=== PATIENT | female | born 1985 | race Caucasian/White ===

== ENCOUNTER 2018-08-09 20:32 | Emergency (ER) | payer BC, OTHER ==
--- NOTE | 2018-08-09 23:06 | ED ---
Lower Extremity - HPI Summary HPI Summary: 32-year-old female presents with left foot pain for the past week. States she is on her feet a lot. She states she is pain over her second metatarsal MTP. She states she has no pain at rest and only when she walks on it or moves her toes. States pain does not radiate anywhere. No injury. No numbness or tingling. - History of Current Complaint Chief Complaint: EDExtremityLower Stated Complaint: LT FT INJURY Time Seen by Provider: 08/09/18 21:23 Hx Last Menstrual Period: 03/13/15 Pain Intensity: 6 - Allergies/Home Medications Allergies/Adverse Reactions: Allergies Allergy/AdvReac Type Severity Reaction Status Date / Time celecoxib [From Celebrex] Allergy Anxiety Verified 08/09/18 21:53 diphenhydramine Allergy Anxiety Verified 08/09/18 21:53 [From Benadryl] NSAIDS (Non-Steroidal Allergy Tachycardia Verified 08/09/18 21:53 Anti-Inflamma pseudoephedrine Allergy Anxiety Verified 08/09/18 21:53 PMH/Surg Hx/FS Hx/Imm Hx Endocrine/Hematology History: Denies: Hx Anticoagulant Therapy - Surgical History Surgery Procedure, Year, and Place: LIPOMA REMOVED, ENDOSCOPY Infectious Disease History: No Infectious Disease History: Denies: Hx Clostridium Difficile, Hx Hepatitis, Hx Human Immunodeficiency Virus (HIV), Hx of Known/Suspected MRSA, Hx Shingles, Hx Tuberculosis, History Other Infectious Disease, Traveled Outside the [place] in Last 30 Days - Family History Known Family History: Positive: None, Other - No FHx of clotting disorders - Social History Alcohol Use: Weekly Substance Use Type: Reports: None Smoking Status (MU): Never Smoked Tobacco Review of Systems Negative: Fever Negative: Chest Pain Negative: Shortness Of Breath Positive: Myalgia - left foot pain All Other Systems Reviewed And Are Negative: Yes Physical Exam Triage Information Reviewed: Yes Vital Signs On Initial Exam: Initial Vitals Temp Pulse Resp BP Pulse Ox 98.5 F 75 15 137/84 100 08/09/18 20:58 08/09/18 20:58 08/09/18 20:58 08/09/18 20:58 08/09/18 20:58 Vital Signs Reviewed: Yes Appearance: Positive: Well-Appearing Skin: Positive: Warm, Dry Head/Face: Positive: Normal Head/Face Inspection Eyes: Positive: Normal, Conjunctiva Clear ENT: Positive: Pharynx normal Respiratory/Lung Sounds: Positive: Clear to Auscultation, Breath Sounds Present Cardiovascular: Positive: Normal, RRR Musculoskeletal: Positive: Strength/ROM Intact - left foot, Other - tenderness over MTP 2nd great toe, capillary refill<2 secs, sensation grossly intact Neurological: Positive: Normal Psychiatric: Positive: Normal Diagnostics - Vital Signs Vital Signs Temp Pulse Resp BP Pulse Ox 08/09/18 20:58 98.5 F 75 15 137/84 100 - Laboratory Lab Statement: Any lab studies that have been ordered have been reviewed, and results considered in the medical decision making process. - Radiology foot Xray Interpretation: No Acute Changes Radiology Interpretation Completed By: ED Physician Lower Extremity Course/Dx - Course Course Of Treatment: 32-year-old female presents with left foot pain for the past week. States she is on her feet a lot. She states she is pain over her second metatarsal MTP. She states she has no pain at rest and only when she walks on it or moves her toes. States pain does not radiate anywhere. No injury. No numbness or tingling. On exam tenderness over the MTP of the right toe. Neurovascular intact. X-ray read by me as normal. Told to practice carlos. Gave referral to podiatry is not improving. Patient understands agrees with plan. - Diagnoses Differential Diagnosis/HQI/PQRI: Positive: Fracture (Closed), Sprain, Strain Provider Diagnoses: Left foot pain Discharge - Sign-Out/Discharge Documenting (check all that apply): Patient Departure - Discharge Plan Condition: Good Disposition: HOME Patient Education Materials: R.I.C.E. Treatment (ED) Referrals: North Chan MD [Primary Care Provider] - Lam Grady DPM [Doctor of Podiatric Medicine] - Additional Instructions: Wear hard sole shoes can try corn pads on area to avoid putting pressure on the area directly Ice, elevate Take Tylenol for pain every 6 hours as needed Follow up with podatiry if no improvement Return to ED if develop or any new or worsening symptoms - Billing Disposition and Condition Condition: GOOD Disposition: Home
[2018-08-09 23:22] VITALS: BP 137/72
--- NOTE | 2018-08-10 08:01 | RAD ---
HISTORY: left foot pain COMPARISONS: None VIEWS: 3 , Frontal, lateral, and oblique views of the left foot FINDINGS: BONE DENSITY: Normal. BONES: There is no displaced fracture. JOINTS: There is no arthropathy. ALIGNMENT: There is no dislocation. SOFT TISSUES: Unremarkable. OTHER FINDINGS: None. IMPRESSION: NO ACUTE OSSEOUS INJURY. IF SYMPTOMS PERSIST, RECOMMEND REPEAT IMAGING. R0
== END 2018-08-09 23:21 | disposition home or self-care (01) ==
LOC: ED 20:32
DX: M79.672 Pain in left foot (principal)
CPT/HCPCS: 99282

== ENCOUNTER 2019-04-04 13:49 | Emergency (ER) | payer BC ==
[2019-04-04 14:51] VITALS: BP 118/68
--- NOTE | 2019-04-04 15:25 | UC ---
Ear Complaint HPI - HPI Summary HPI Summary: 33 yo female with 3 day hx of URI symptoms Now with bilat otalgia L>>R no fever some sinus pressure and post nasal drip - History of Current Complaint Chief Complaint: UCEar Stated Complaint: EAR PAIN SINUS ISSUE Time Seen by Provider: 04/04/19 15:19 Hx Obtained From: Patient Hx Last Menstrual Period: 03/12/19 Onset/Duration: Gradual Onset, Lasting Hours Severity Initially: Mild Severity Currently: Mild Pain Intensity: 3 Pain Scale Used: 0-10 Numeric Alleviating Factors: OTC Meds Associated Signs/Symptoms: Positive: URI Symptoms - Allergies/Home Medications Allergies/Adverse Reactions: Allergies Allergy/AdvReac Type Severity Reaction Status Date / Time celecoxib [From Celebrex] Allergy Anxiety Verified 04/04/19 14:52 diphenhydramine Allergy Anxiety Verified 04/04/19 14:52 [From Benadryl] NSAIDS (Non-Steroidal Allergy Tachycardia Verified 04/04/19 14:52 Anti-Inflamma pseudoephedrine Allergy Anxiety Verified 04/04/19 14:52 PMH/Surg Hx/FS Hx/Imm Hx Previously Healthy: Yes Other History Of: Negative For: Anticoagulant Therapy - Surgical History Surgical History: Yes Surgery Procedure, Year, and Place: LIPOMA REMOVED, ENDOSCOPY - Family History Known Family History: Positive: Other - No FHx of clotting disorders Negative: Cardiac Disease, Hypertension, Diabetes - Social History Alcohol Use: Weekly Substance Use Type: None Smoking Status (MU): Never Smoked Tobacco Review of Systems All Other Systems Reviewed And Are Negative: Yes Constitutional: Positive: Negative Skin: Positive: Negative Eyes: Positive: Negative ENT: Positive: Ear Ache, Nasal Discharge, Sinus Congestion, Sinus Pain/ Tenderness Respiratory: Positive: Negative Cardiovascular: Positive: Negative Gastrointestinal: Positive: Negative Genitourinary: Positive: Negative Motor: Positive: Negative Musculoskeletal: Positive: Negative Neurological: Positive: Negative Psychological: Positive: Negative Physical Exam Triage Information Reviewed: Yes Appearance: Well-Appearing, No Pain Distress, Well-Nourished Vital Signs: Initial Vital Signs Temp 99.7 F 04/04/19 14:47 Pulse 80 04/04/19 14:47 Resp 17 04/04/19 14:47 BP 118/68 04/04/19 14:47 Pulse Ox 99 04/04/19 14:47 Vital Signs Reviewed: Yes Eyes: Positive: Conjunctiva Clear ENT: Positive: Hearing grossly normal, Nasal congestion, Nasal drainage, TM bulging - L>R, TM red - L. Negative: Tonsillar swelling, Tonsillar exudate, Trismus, Muffled voice, Hoarse voice, Sinus tenderness, Uvula midline Dental Exam: Normal Neck: Positive: Supple, Nontender, No Lymphadenopathy Respiratory: Positive: Lungs clear, Normal breath sounds, No respiratory distress, No accessory muscle use Cardiovascular: Positive: RRR, No Murmur Musculoskeletal: Positive: ROM Intact, No Edema Psychological Exam: Normal Skin Exam: Normal Ear Complaint Course/Dx - Differential Dx/Diagnosis Provider Diagnosis: Left otitis media, Right serous otitis media, Viral upper respiratory infection Discharge - Sign-Out/Discharge Documenting (check all that apply): Patient Departure All imaging exams completed and their final reports reviewed: No Studies - Discharge Plan Condition: Stable Disposition: HOME Prescriptions: Amoxicillin PO (*) [Amoxicillin 875 MG (*)] 875 mg PO BID #20 tab Patient Education Materials: Ear Infection (ED) Referrals: North Chan MD [Primary Care Provider] - 5 Days (if not improved) - Billing Disposition and Condition Condition: STABLE Disposition: Home
== END 2019-04-04 15:32 | disposition home or self-care (01) ==
LOC: UCEAST 13:49
DX: H66.92 Otitis media, unspecified, left ear (principal); H65.91 Unspecified nonsuppurative otitis media, right ear; J06.9 Acute upper respiratory infection, unspecified
CPT/HCPCS: 99212; G0463